=== PATIENT | male | born 1980 | race African-American/Black ===

== ENCOUNTER 2017-11-11 12:53 | Outpatient (CLI) | payer OTHER | END 2017-11-11 12:58 | disposition short-term general hospital (02) | LOC: AMB 12:53 | DX: M79.604 Pain in right leg (principal) | CPT/HCPCS: A0425; A0427 ==

== ENCOUNTER 2017-11-11 13:03 | Emergency (ER) | payer OTHER ==
[~2017-11-11] VITALS: Ht 170.2 cm; Wt 81.6 kg
[2017-11-11 13:44] LABS: PLATELET COUNT 391 K/uL (142-355)
[2017-11-11 14:06] LABS: POTASSIUM 4.4 mmol/L (3.6-5.2)
[2017-11-11 18:16] VITALS: BP 118/93; TEMP 98.1
== END 2017-11-11 18:17 | disposition home or self-care (01) ==
LOC: ED 13:03
PROVIDERS: Emergency Medicine
DX: R41.0 Disorientation, unspecified (principal); E86.9 Volume depletion, unspecified
CPT/HCPCS: 36415; 80053; 80307; 80320; 80329; 81000; 83735; 85027; 96360; 96361; 99284; J2405